=== PATIENT | female | born 1980 | race Caucasian/White ===

== ENCOUNTER 2020-11-16 17:15 | Emergency (ER) | payer OTHER ==
[~2020-11-16] VITALS: Ht 167.6 cm; Wt 99.8 kg
[2020-11-16] MEDS ORDERED: HYDROCODONE/APAP 5MG-325MG TAB PO ONE (17:45)
[2020-11-16] MEDS ORDERED: CYCLOBENZAPRINE HCL 10 MG TAB PO ONE (17:45)
[2020-11-16] MEDS ORDERED: CLONIDINE HCL 0.2 MG TAB PO ONE (17:45)
[2020-11-16] MEDS ORDERED: CLONIDINE HCL 0.1 MG TAB ONE (17:46)
[2020-11-16] MEDS ORDERED: NAPROSYN500 MG PO (18:28)
[2020-11-16] MEDS ORDERED: CYCLOBENZAPRINE5 MG PO (18:28)
[2020-11-16] MEDS ORDERED: AMILORIDE HCL5 MG PO (18:28)
== END 2020-11-16 18:47 | disposition home or self-care (01) ==
LOC: FSED 17:45
DX: M54.2 Cervicalgia (principal); M79.18 Myalgia, other site; I10 Essential (primary) hypertension
CPT/HCPCS: 72040; 99283

== ENCOUNTER 2022-10-23 18:40 | Emergency (ER) | payer MEDICAID ==
[~2022-10-23] VITALS: Ht 167.6 cm; Wt 115.2 kg
[~2022-10-23 18:40] MED LIST: AMILORIDE HCL5 MG PO; CYCLOBENZAPRINE5 MG PO; NAPROSYN500 MG PO
[2022-10-23] MEDS ORDERED: KETOROLAC TROMETHAMINE 30 MG/ML VIAL IV STA (19:44)
[2022-10-23] MEDS ORDERED: ONDANSETRON HCL INJ 2MG/ML 2ML 2 MG/ML VIAL IV STA (19:44)
[2022-10-23] MEDS ORDERED: SODIUM CHLORIDE 0.9% 1000ML 1,000 ML IV SCH (19:45)
[2022-10-23] MEDS ORDERED: KETOROLAC TROME10 MG PO (21:08)
[2022-10-23] MEDS ORDERED: ACETAMINOPHEN-1 EAC4 PO (21:08)
[2022-10-23] MEDS ORDERED: FLOMAX0.4 MG PO (21:08)
[2022-10-23] MEDS ORDERED: ONDANSETRON ODT4 MG PO (21:08)
== END 2022-10-23 21:40 | disposition home or self-care (01) ==
LOC: FSED 18:43
DX: R11.2 Nausea with vomiting, unspecified (principal); R10.31 Right lower quadrant pain; N13.2 Hydronephrosis with renal and ureteral calculous obstruction
CPT/HCPCS: 74176; 80053; 81003; 81025; 85025; 99284; J1885; J2405; J7030